=== PATIENT | male | born 1980 | race Caucasian/White ===

== ENCOUNTER → 2017-12-25 | Outpatient (CLI) | payer OTHER ==
--- NOTE | 2017-12-25 10:52 | DIAGNOSTIC IMAGING REPORT ---
ABDOMEN FOR HERNIA CLINICAL HISTORY: ABDOMINAL HERNIA WITHOUT OBS hernia TECHNIQUE: Ultrasound pre and post Valsalva COMPARISON STUDY: None FINDINGS: Ultrasonic evaluation of the inguinal regions show the presence of a bowel containing left inguinal hernia. This is reducible or there are no abnormal fluid collections. IMPRESSION: Bowel containing, reducible, left inguinal hernia. The above report was generated using voice recognition software. It may contain grammatical, syntax or spelling errors. Electronically signed by: Glenn Machado M.D. 12/25/2017 10:51 AM Dictated Date/Time: 12/25/2017 10:50 AM
== END | disposition home or self-care (01) ==
LOC: C.ULTR 10:09
PROVIDERS: ATTEND Family Medicine
DX: K40.90 Unilateral inguinal hernia, without obstruction or gangrene, not specified as recurrent (principal)

== ENCOUNTER → 2018-01-25 | Day surgery (SDC) | payer OTHER ==
[2018-01-17 10:56] VITALS: Ht 190.5 cm; Wt 90.9 kg
[~2018-01-25] VITALS: Ht 190.5 cm; Wt 90.9 kg
[~2018-01-25] MED LIST: ATROPINE SULFATE 0.1 MG/ML 5ML SYR IV PRN; BACITRACIN 50000 UNIT VIAL ONE; BUPIVACAINE 0.5 % 5 MG/1 ML MPF 30ML VIAL ONE; CEFAZOLIN SOD 1 GM VIAL ONE; DEXAMETHASONE SOD INJ 4 MG/ML VIAL ONE; EpHEDrine SULFATE INJ 50 MG/ML AMP IV PRN; FENTANYL CITRATE INJ 50 MCG/1 ML 2 ML VIAL IV PRN; FENTANYL CITRATE INJ 50 MCG/1 ML 2 ML VIAL ONE; HYDROmorphone INJ 1 MG/ML SYR IV PRN; LACTATED RINGER'S 1000ML 1,000 ML IV SCH; LIDOCAINE HCL 2% 2 ML VIAL (20MG/ML) ONE; LISD70CA PO; MIDAZOLAM HCL 1 MG/ML 2ML VIAL ONE; MoRPHine SULFATE 4 MG/ML 1 ML CARP\\VIAL IV PRN; ONDANSETRON INJ 2 MG/ML 2 ML VIAL IV PRN; ONDANSETRON INJ 2 MG/ML 2 ML VIAL ONE; OXYC-57 PO; OXYCODONE/ACETAMINOPHEN 5-325 TAB PO PRN; PROPOFOL IV EMULSION 10 MG/ML 20 ML VIAL IV ONE; SODIUM CHLORIDE 0.9% INJ 10 ML VIAL ONE
--- NOTE | 2018-01-25 06:34 | History & Physical Bridge Note ---
H&P Re-Evaluation Bridge Note: I have examined the patient, reviewed the History & Physical and in the interval since the performance of the History & Physical I have noted the following changes of clinical significance: No changes noted SO at bedside all questions answered pt marked
--- NOTE | 2018-01-25 07:52 | [facility] Post Operative Brief Note ---
Immediate Operative Summary Operative Date Jan 25, 2018. Pre-Operative Diagnosis Left Inguinal Hernia Post-Operative Diagnosis left direct Procedure(s) Performed Left diredct Inguinal Hernia Open Repair With Mesh marricky tension free Surgeon Dr. Mack Director Clinical Data Surgeon(s) Philip Ramirez PA-C Estimated Blood Loss 4ML Findings See Below large direct defect Specimens NONE Anesthesia Type General
--- NOTE | 2018-01-25 08:08 | Discharge Instructions ---
Discharge Instructions Date of Service Jan 25, 2018. Visit Reason for Visit: Left Inguinal Hernia Discharge Discharge Diagnosis / Problem: inguinal hernia repair Discharge Goals Goal(s): Decrease discomfort Activity Recommendations Activity Limitations: as noted below Lifting Limitations: no more than 10 pounds Shower/Bathe: tomorrow Driving or Machine Use: resume 3 days after discharge Anesthesia . Post Anesthesia Instructions: If you have had General Anesthesia or IV Sedation: * Do not drive today. * Resume driving when surgeon permits. * Do not make important decisions or sign legal documents today. * Call surgeon for: 1. Temperature elevations greater than 101 degrees F. 2. Uncontrollable pain. 3. Excessive bleeding. 4. Persistent nausea and vomiting. 5. Medication intolerance (nausea, vomiting or rash). * For nausea and vomiting use only clear liquids such as: tea, soda, bouillon until nausea subsides, then gradually increase diet as tolerated. * If you have any concerns or questions, call your surgeon's office. If physician is unavailable and it is an emergency, call 911 or go to the nearest emergency room. . Instructions / Follow-Up Instructions / Follow-Up Dr. Mack in 1 week as planned, call [phone] if you have any questions Ice incision area alternating off and on every 20 min until bedtime Diet Recommendations Recommended Home Diet: no limitations Procedures Procedures Performed: Left diredct Inguinal Hernia Open Repair With Mesh marlex tension free Pending Studies Studies pending at discharge: no Medical Emergencies . Who to Call and When: Medical Emergencies: If at any time you feel your situation is an emergency, please call 911 immediately. . Non-Emergent Contact Non-Emergency issues call your: Surgeon Call Non-Emergent contact if: you have a fever, temperature is above 101.5, your pain is not controlled, wound has increased redness, you have any medication questions . . "Provider Documentation" section prepared by Ilan Ramirez. .
--- NOTE | 2018-01-25 08:13 | OPERATIVE REPORT ---
DATE OF OPERATION: 01/25/2018 SURGEON: Luiz Mack MD. EMR TRAINER: Ilan Ramirez PA-C. PREOPERATIVE DIAGNOSIS: Left inguinal hernia. POSTOPERATIVE DIAGNOSIS: Left direct inguinal hernia. PROCEDURE: Left direct inguinal hernia repair with Marlex mesh tension free. SUMMARY: The patient was brought into the operating room theater. Under general anesthesia, the left lower quadrant scrubbed and prepped with Betadine solution prepped and probably draped. 0.5% Marcaine with epinephrine was used to infiltrate 2 fingerbreadths medial to the anterior superior iliac crest in preemptive analgesic pattern. At this point, an incision was made approximately 3 inches long parallel to the inguinal ligament, deepened through subcutaneous tissue onto the external oblique. Venous plexus were ligated with 2-0 silk. The external oblique was opened along the course of its fibers to the external ring, nerve identified and elevated it on top of hemostats and retracted superiorly. At this point, we elevated the cord and its structures and identified that the patient's main problem was a large direct defect. We dissected the cord all the way to the internal ring. There was no evidence of indirect component and no lipoma. The direct defect pretty much involved the whole floor. The inferior epigastric vessels could be seen and avoided. At this point we then used 3-0 silk to reduce the direct defect retroperitoneally. I then brought in a sheet of Marlex mesh, cut it appropriately, sutured the symphysis pubis, shelving portion of the inguinal ligament, conjoined tendon superiorly reconstructing the internal ring, placing the nerve along the cord. Once this had been completed, the internal ring could only accommodate the tip of a hemostat. The mesh was closed underneath the external oblique with interrupted 3-0 silk reconstructing the external ring. Topical antibiotics was used. There was also a topical local anesthetic was used. The wound was then closed with 2-0 subcutaneous Dexon as stay sutures and evan for skin edges. Dressing was applied. The procedure was tolerated well by the patient. Estimated blood loss approximately 4 mL. The patient was taken to recovery in good condition. I attest to the content of the Intraoperative Record and any orders documented therein. Any exception s are noted below.
[2018-01-25 08:55] VITALS: TEMP 36.3
--- NOTE | 2018-01-25 08:58 | Anesthesia Progress Nt - [facility] ---
Anesthesia Post Op Note Date & Time Jan 25, 2018 at 08:58 Vital Signs Pain Intensity: 0 Vital Signs Past 12 Hours Date Time Temp Pulse Resp B/P (MAP) Pulse Ox O2 Delivery O2 Flow Rate FiO2 01/25/18 08:47 59 20 127/90 99 01/25/18 08:47 65 20 01/25/18 08:47 36.5 56 12 127/90 99 Room Air 01/25/18 08:42 67 12 144/79 97 01/25/18 08:42 73 12 01/25/18 08:37 61 12 01/25/18 08:37 12 01/25/18 08:36 140/96 01/25/18 08:32 65 14 01/25/18 08:32 62 14 100 01/25/18 08:31 144/103 01/25/18 08:27 64 14 100 01/25/18 08:27 65 14 01/25/18 08:25 139/93 01/25/18 08:22 68 19 01/25/18 08:22 19 01/25/18 08:17 52 12 01/25/18 08:17 53 12 100 01/25/18 08:15 130/82 01/25/18 08:12 54 12 01/25/18 08:12 55 12 100 01/25/18 08:10 118/77 01/25/18 08:07 59 11 01/25/18 08:07 59 11 100 01/25/18 08:05 116/70 01/25/18 08:03 112/62 01/25/18 08:02 36.3 61 12 112/62 100 Mask 6 01/25/18 06:34 36.5 49 16 120/73 (89) 98 Room Air Notes Mental Status: alert / awake / arousable, participated in evaluation Pt Amnestic to Procedure: Yes Nausea / Vomiting: adequately controlled Pain: adequately controlled Airway Patency, RR, SpO2: stable & adequate BP & HR: stable & adequate Hydration State: stable & adequate Anesthetic Complications: no major complications apparent
[2018-01-25 09:17] VITALS: BP 123/78; PULSE 68; O2SAT 100
== END | disposition home or self-care (01) ==
LOC: X.SURG 06:12
PROVIDERS: ATTEND Surgery
DX: K40.90 Unilateral inguinal hernia, without obstruction or gangrene, not specified as recurrent (principal); F90.0 Attention-deficit hyperactivity disorder, predominantly inattentive type; R56.9 Unspecified convulsions; Z82.3 Family history of stroke; Z82.49 Family history of ischemic heart disease and other diseases of the circulatory system; Z81.8 Family history of other mental and behavioral disorders; Z80.0 Family history of malignant neoplasm of digestive organs; Z81.1 Family history of alcohol abuse and dependence

== ENCOUNTER → 2018-01-30 | Outpatient (CLI) | payer OTHER ==
[~2018-01-30] MED LIST changes: -ATROPINE SULFATE 0.1 MG/ML 5ML SYR IV PRN; -BACITRACIN 50000 UNIT VIAL ONE; -BUPIVACAINE 0.5 % 5 MG/1 ML MPF 30ML VIAL ONE; -CEFAZOLIN SOD 1 GM VIAL ONE; -DEXAMETHASONE SOD INJ 4 MG/ML VIAL ONE; -EpHEDrine SULFATE INJ 50 MG/ML AMP IV PRN; -FENTANYL CITRATE INJ 50 MCG/1 ML 2 ML VIAL IV PRN; -FENTANYL CITRATE INJ 50 MCG/1 ML 2 ML VIAL ONE; -HYDROmorphone INJ 1 MG/ML SYR IV PRN; -LACTATED RINGER'S 1000ML 1,000 ML IV SCH; -LIDOCAINE HCL 2% 2 ML VIAL (20MG/ML) ONE; -MIDAZOLAM HCL 1 MG/ML 2ML VIAL ONE; -MoRPHine SULFATE 4 MG/ML 1 ML CARP\\VIAL IV PRN; -ONDANSETRON INJ 2 MG/ML 2 ML VIAL IV PRN; -ONDANSETRON INJ 2 MG/ML 2 ML VIAL ONE; -OXYCODONE/ACETAMINOPHEN 5-325 TAB PO PRN; -PROPOFOL IV EMULSION 10 MG/ML 20 ML VIAL IV ONE; -SODIUM CHLORIDE 0.9% INJ 10 ML VIAL ONE
--- NOTE | 2018-01-31 16:59 | EEG Procedure Note ---
EEG Procedure Note Date of Service Jan 30, 2018. Start / End Times Start Time: 8:02am End Time: 8:22am Referring Physician Jake Pace History This is a 37-year-old male with passing out episodes and concern for seizure- like activity. EEG for further evaluation for possible seizure etiology Home Medication List Scheduled Lisdexamfetamine Dimesylate (Vyvanse), 70 MG PO QAM Scheduled PRN Oxycodone/Acetaminophen 5MG/325MG (Percocet 5MG/325MG), 1-2 TABLETS PO Q4H PRN for Pain Description This is a 21 electrode EEG with a single channel dedicated to limited EKG. The electrodes were placed in accordance with the International 10-20 system. At the start of the recording the patient was in an awake state. Background was well organized and composed of symmetric mixed alpha and beta frequencies. There was a symmetric well-formed moderate amplitude 8-9 Hz posterior dominant rhythm that was reactive to eye opening and closure. Hyperventilation was not done. Intermittent photic stimulation at various frequencies produced no abnormalities. There was no state changes or sleep transients. Interpretation This is a normal awake only routine EEG. There was no electrographic seizures or epileptiform discharges. Clinical Correlation A normal EEG does not rule out epilepsy if there is a strong clinical suspicion.
== END | disposition home or self-care (01) ==
LOC: C.NEUR 07:55
PROVIDERS: ATTEND Psychiatry & Neurology Neurology
DX: R56.9 Unspecified convulsions (principal)